=== PATIENT | male | born 1960 | race Caucasian/White ===

== ENCOUNTER → 2017-03-31 | Outpatient (CLI) | payer BC | LOC: COL.RAD 07:48 | DX: J98.4 Other disorders of lung (principal); R63.4 Abnormal weight loss; D50.0 Iron deficiency anemia secondary to blood loss (chronic) | CPT/HCPCS: Q9967 ==

== ENCOUNTER 2017-04-18 12:02 | Inpatient (IN) | payer BC ==
[2017-04-18] VITALS (7 sets, daily range): BP systolic 101–129; BP diastolic 55–70; PULSE 85–91; TEMP 98–99.9
[~2017-04-18] VITALS: Ht 180.3 cm; Wt 74.7 kg
[2017-04-18] MEDS ORDERED: MULTI VITAMINS1 TAB PO (13:42)
[2017-04-18 13:43] LABS: MEAN CELL VOLUME 70 fl (80.0-100.0); MEAN CORPUSCULAR HGB CONC 31 g/dl (33.0-37.0); MEAN PLATELET VOLUME 8.1 fl (7.4-10.4); PLATELET COUNT 556 K/mm3 (130-400); REDCELL DISTRIBUTION WIDTH-CV 14.8 % (11.5-14.5)
[2017-04-18] MEDS ORDERED: PROFERRIN ES12 MG PO (13:43)
[2017-04-18 13:45] LABS: HEMATOCRIT 22.4 % (42.0-52.0); MEAN CORPUSCULAR HEMOGLOBIN 22 pg (27.0-31.0)
[2017-04-19] VITALS (28 sets, daily range): BP systolic 84–129; BP diastolic 48–72; PULSE 57–100; TEMP 97.4–101.7
[2017-04-19 06:32] LABS: HEMATOCRIT 26.2 % (42.0-52.0); HEMOGLOBIN 8.3 g/dl (13.5-18.0)
[2017-04-19 17:57] LABS: HEMOGLOBIN 9.5 g/dl (13.5-18.0)
[2017-04-20] VITALS (7 sets, daily range): BP systolic 107–131; BP diastolic 56–65; PULSE 59–95; TEMP 97.4–101.2
[2017-04-20 00:10] LABS: COLLECTION METHOD CLEAN CATCH
[2017-04-20 00:16] LABS: MUCOUS Present /lpf; PH 7 (5-8); SQUAMOUS EPITHELIAL None Seen /hpf; URINE APPEARANCE Clear; URINE BACTERIA None Seen /hpf; URINE BILIRUBIN Negative (NEGATIVE); URINE BLOOD 2+ (NEGATIVE); URINE COLOR Yellow; URINE GLUCOSE Negative (NEGATIVE); URINE KETONE Negative (NEGATIVE); URINE LEUKOCYTE ESTERASE Trace (NEGATIVE); URINE NITRATE Negative (NEGATIVE); URINE PROTEIN(semi-quant) 1+ (NEGATIVE); URINE UROBILINOGEN Negative (NEGATIVE)
[2017-04-20 06:45] LABS: BASO # 0.1 (0.0-0.2); BASO % 0.5 % (0.0-2.0); EOS # 0.3 (0.0-0.7); EOS % 2.2 % (0-4.0); GRAN # 8.6 (1.4-6.5); GRAN % 72.9 % (42.2-75.2); LYMPH # 1.4 (1.2-3.4); LYMPH % 11.9 % (20.0-51.0); MEAN CELL VOLUME 74 fl (80.0-100.0); MEAN CORPUSCULAR HGB CONC 32 g/dl (33.0-37.0); MEAN PLATELET VOLUME 7.9 fl (7.4-10.4); MONO # 1.4 (0.1-0.6); MONO % 11.6 % (1.7-9.3); PLATELET COUNT 546 K/mm3 (130-400); RED BLOOD COUNT 3.73 M/mm3 (4.20-5.60); REDCELL DISTRIBUTION WIDTH-CV 17.3 % (11.5-14.5)
[2017-04-20 07:04] LABS: HEMATOCRIT 27.9 % (42.0-52.0); HEMOGLOBIN 8.8 g/dl (13.5-18.0)
[2017-04-20 07:06] LABS: HEMATOCRIT 27.6 % (42.0-52.0); HEMOGLOBIN 8.8 g/dl (13.5-18.0); MEAN CORPUSCULAR HEMOGLOBIN 24 pg (27.0-31.0)
[2017-04-20 07:41] LABS: ERYTHROCYTE SEDIMENTATION RATE 59 mm/hr (0-30)
[2017-04-21] VITALS (395 sets, daily range): BP systolic 105–137; BP diastolic 60–79; PULSE 81–100; TEMP 98–98.8; O2SAT 70–99
[2017-04-21 14:09] LABS: INR 1.4 (0.8-3.0); PROTHROMBIN TIME 15.7 SECONDS (9.7-12.8)
[2017-04-21 14:20] LABS: CALCIUM 7.8 mg/dL (8.4-10.2); CREATININE, serum 2.31 mg/dL (0.66-1.25); POTASSIUM 3.9 mmol/L (3.4-5.0)
[2017-04-21 23:51] LABS: RHEUMATOID FACTOR-SCREEN <15 IU/mL (0-29)
[2017-04-22] VITALS (378 sets, daily range): BP systolic 104–147; BP diastolic 64–88; PULSE 81–99; TEMP 98.1–98.5; O2SAT 91–100
[2017-04-22 05:51] LABS: BASO % 0.2 % (0.0-2.0); EOS # 0.2 (0.0-0.7); EOS % 1.9 % (0-4.0); GRAN # 9.5 (1.4-6.5); GRAN % 78.3 % (42.2-75.2); LYMPH # 0.9 (1.2-3.4); LYMPH % 7.7 % (20.0-51.0); MEAN CELL VOLUME 73 fl (80.0-100.0); MEAN CORPUSCULAR HGB CONC 32 g/dl (33.0-37.0); MEAN PLATELET VOLUME 7.8 fl (7.4-10.4); MONO # 1.3 (0.1-0.6); MONO % 10.9 % (1.7-9.3); PLATELET COUNT 458 K/mm3 (130-400); RED BLOOD COUNT 3.72 M/mm3 (4.20-5.60); REDCELL DISTRIBUTION WIDTH-CV 17.6 % (11.5-14.5)
[2017-04-22 05:58] LABS: INR 1.3 (0.8-3.0); PROTHROMBIN TIME 15.2 SECONDS (9.7-12.8)
[2017-04-22 06:00] LABS: HEMATOCRIT 27.2 % (42.0-52.0); HEMOGLOBIN 8.7 g/dl (13.5-18.0); MEAN CORPUSCULAR HEMOGLOBIN 23 pg (27.0-31.0)
[2017-04-22 06:01] LABS: PARTIAL THROMBOPLASTIN TIME 32.3 SECONDS (26.0-37.0)
[2017-04-22 06:02] LABS: ALBUMIN 2.4 gm/dL (3.5-5.0); BILIRUBIN,TOTAL 0.3 mg/dL (0.0-1.0); CALCIUM 7.9 mg/dL (8.4-10.2); CREATININE, serum 2.31 mg/dL (0.66-1.25); POTASSIUM 3.6 mmol/L (3.4-5.0); TOTAL PROTEIN 5.6 gm/dL (6.4-8.2)
[2017-04-22 14:15] LABS: COLLECTION METHOD CLEAN CATCH
[2017-04-22 14:24] LABS: PH 6 (5-8); SQUAMOUS EPITHELIAL None Seen /hpf; URINE APPEARANCE Clear; URINE BACTERIA Rare /hpf; URINE BILIRUBIN Negative (NEGATIVE); URINE BLOOD 2+ (NEGATIVE); URINE COLOR Straw; URINE GLUCOSE Negative (NEGATIVE); URINE KETONE Negative (NEGATIVE); URINE LEUKOCYTE ESTERASE Negative (NEGATIVE); URINE NITRATE Negative (NEGATIVE); URINE PROTEIN(semi-quant) Negative (NEGATIVE); URINE UROBILINOGEN Negative (NEGATIVE)
[2017-04-22 14:37] LABS: URINE PROTEIN:CREAT RATIO 1.2 (0.00-0.14)
[2017-04-23 00:13] LABS: COMPLEMENT-C3 119 mg/dL (79-152); COMPLEMENT-C4 20 mg/dL (18-55)
[2017-04-23 01:04] VITALS: BP 110/66; PULSE 96; TEMP 98.4
[2017-04-23 06:05] VITALS: BP 122/65; PULSE 98; TEMP 98.5
[2017-04-23 07:18] LABS: THYROXINE (T4)-TOTAL 7.9 ug/dL (5.5-11.0)
[2017-04-23 07:32] LABS: THYROID STIMULATING HORMONE 8.71 uIU/mL (0.465-4.680)
[2017-04-23 08:19] VITALS: BP 118/62; PULSE 96; TEMP 98.5
[2017-04-23 11:08] LABS: CREATININE, serum 2.31 mg/dL (0.66-1.25); POTASSIUM 3.4 mmol/L (3.4-5.0)
[2017-04-23 11:59] VITALS: BP 125/67; PULSE 93; TEMP 98.8
[2017-04-23 15:02] VITALS: BP 121/60; PULSE 86; TEMP 98.6
[2017-04-23 20:44] VITALS: BP 136/68; PULSE 74; TEMP 68.5
[2017-04-24] VITALS (7 sets, daily range): BP systolic 114–133; BP diastolic 50–65; PULSE 74–103; TEMP 98–99.6
[2017-04-25 04:24] VITALS: BP 149/72; PULSE 65; TEMP 98.6
[2017-04-25 08:06] VITALS: PULSE 86; TEMP 99.9
[2017-04-25 08:39] LABS: HEMATOCRIT 25.5 % (42.0-52.0)
[2017-04-25 08:53] LABS: CREATININE, serum 2.31 mg/dL (0.66-1.25); POTASSIUM 3.6 mmol/L (3.4-5.0)
[2017-04-25 11:29] VITALS: BP 110/55; PULSE 88; TEMP 99.4
[2017-04-25 15:47] VITALS: BP 116/61; PULSE 84; TEMP 99.4
[2017-04-25 19:59] VITALS: BP 130/66; PULSE 101; TEMP 98.8
[2017-04-26 00:47] VITALS: BP 122/63; PULSE 87; TEMP 98.6
[2017-04-26 05:43] VITALS: BP 101/69; PULSE 80; TEMP 98.6
[2017-04-26 08:33] VITALS: BP 123/60; PULSE 94; TEMP 99.1
[2017-04-26 11:05] VITALS: BP 110/57; PULSE 88; TEMP 99.6
[2017-04-26 16:17] VITALS: BP 118/58; PULSE 86; TEMP 99.6
[2017-04-26 18:15] LABS: IRON,SERUM 10 ug/dL (35-150)
[2017-04-26 18:24] LABS: TOTAL IRON BINDING CAPACITY 190 ug/dL (261-462)
[2017-04-26 19:41] VITALS: BP 127/57; PULSE 90; TEMP 99.5
[2017-04-26 20:49] LABS: KAPPA FREE LIGHT CHAIN-SERUM 20.5 mg/dL (()); LAMDA FREE LIGHT CHAIN SERUM 10.9 mg/dL (())
[2017-04-27] VITALS (7 sets, daily range): BP systolic 108–130; BP diastolic 53–85; PULSE 77–102; TEMP 97.9–98.9
[2017-04-27 01:52] LABS: C-ANCA 13 U/mL (0-99)
[2017-04-27 06:37] LABS: MEAN CELL VOLUME 73 fl (80.0-100.0); MEAN CORPUSCULAR HGB CONC 31 g/dl (33.0-37.0); PLATELET COUNT 342 K/mm3 (130-400); RED BLOOD COUNT 3.27 M/mm3 (4.20-5.60); REDCELL DISTRIBUTION WIDTH-CV 17.9 % (11.5-14.5); RETIC # 0.03 M/mm3 (0.02-0.16); RETIC % 0.9 % (0.5-3.52)
[2017-04-27 06:58] LABS: C-REACTIVE PROTEIN 4.7 mg/dL (0.0-0.9); CALCIUM 8.1 mg/dL (8.4-10.2); CREATININE, serum 2.26 mg/dL (0.66-1.25)
[2017-04-27 07:09] LABS: HEMOGLOBIN 7.5 g/dl (13.5-18.0); MEAN CORPUSCULAR HEMOGLOBIN 23 pg (27.0-31.0)
[2017-04-27 10:03] LABS: INR 1.3 (0.8-3.0); PROTHROMBIN TIME 15.2 SECONDS (9.7-12.8)
[2017-04-28] VITALS (19 sets, daily range): BP systolic 103–125; BP diastolic 58–86; PULSE 72–95; TEMP 97.9–99.8
[2017-04-29] VITALS (7 sets, daily range): BP systolic 103–120; BP diastolic 56–65; PULSE 78–94; TEMP 97.1–98.9
[2017-04-29 06:48] LABS: HEMATOCRIT 25.7 % (42.0-52.0); HEMOGLOBIN 8.1 g/dl (13.5-18.0)
[2017-04-29 06:54] LABS: CREATININE, serum 2.65 mg/dL (0.66-1.25)
[2017-04-30 03:30] VITALS: BP 103/58; PULSE 73; TEMP 97.6
[2017-04-30 08:09] VITALS: BP 104/54; PULSE 71; TEMP 97.5
[2017-04-30 11:31] VITALS: BP 96/50; PULSE 76; TEMP 97.8
[2017-04-30 15:07] VITALS: BP 113/60; PULSE 80; TEMP 98.8
[2017-04-30 20:15] VITALS: BP 111/63; PULSE 83; TEMP 98.5
[2017-05-01 00:17] VITALS: BP 101/57; PULSE 70; TEMP 97.9
[2017-05-01 04:26] VITALS: BP 101/57; PULSE 64; TEMP 97.5
[2017-05-01 08:50] VITALS: BP 96/52; PULSE 65; TEMP 97.6
[2017-05-01 11:54] VITALS: BP 98/52; PULSE 76; TEMP 97.5
[2017-05-01 15:47] VITALS: BP 94/47; PULSE 65; TEMP 97.8
[2017-05-01 19:22] VITALS: BP 99/52; PULSE 64; TEMP 97.6
[2017-05-02 00:27] VITALS: BP 101/52; PULSE 65; TEMP 97.6
[2017-05-02 05:12] VITALS: BP 93/59; PULSE 62; TEMP 97.7
[2017-05-02 06:56] LABS: RETIC # 0.06 M/mm3 (0.02-0.16); RETIC % 1.6 % (0.5-3.52)
[2017-05-02 06:59] LABS: CREATININE, serum 2.83 mg/dL (0.66-1.25)
[2017-05-02 07:20] LABS: HEMATOCRIT 27.1 % (42.0-52.0); HEMOGLOBIN 8.5 g/dl (13.5-18.0)
[2017-05-02 08:26] VITALS: BP 111/62; PULSE 82; TEMP 97.7
[2017-05-02 11:34] VITALS: BP 92/44; PULSE 62; TEMP 97.8
[2017-05-02 17:11] VITALS: BP 111/56; PULSE 73; TEMP 99
[2017-05-02 19:21] VITALS: BP 100/55; PULSE 77; TEMP 97.6
[2017-05-03 00:01] VITALS: BP 100/58; PULSE 62; TEMP 97.4
[2017-05-03 03:59] VITALS: BP 101/56; PULSE 73; TEMP 97.7
[2017-05-03 07:20] VITALS: BP 102/55; PULSE 75; TEMP 97.4
[2017-05-03 11:17] VITALS: BP 111/58; PULSE 62; TEMP 97
[2017-05-03] MEDS ORDERED: NATURAL IRON65 MG PO (12:02)
[2017-05-03] MEDS ORDERED: LEVOXYL0.025 MG PO (12:17)
[2017-05-03] MEDS ORDERED: PREDNISONE20 MG PO (12:20)
[2017-05-03] MEDS ORDERED: PRILOSEC 20MG20 MG PO (12:22)
[2017-05-03] MEDS ORDERED: BACTRIM DS 8001 TAB PO (12:28)
== END 2017-05-03 14:44 | disposition home or self-care (01) | DRG 812 ==
LOC: MEDICAL 12:02 → ICU 04-21 14:53 → MEDICAL 04-22 18:00
PROVIDERS: Emergency Medicine; Internal Medicine; Internal Medicine Gastroenterology; Internal Medicine Rheumatology; Nurse Practitioner
PROC: 0DJ08ZZ Inspection of Upper Intestinal Tract, Via Natural or Artificial Opening Endoscopic (ICD-10-PCS; 2017-04-19)
PROC: 0DJD8ZZ Inspection of Lower Intestinal Tract, Via Natural or Artificial Opening Endoscopic (ICD-10-PCS; 2017-04-19)
PROC: 0W9D30Z Drainage of Pericardial Cavity with Drainage Device, Percutaneous Approach (ICD-10-PCS; principal; 2017-04-22)
PROC: 0TB13ZX Excision of Left Kidney, Percutaneous Approach, Diagnostic (ICD-10-PCS; 2017-04-28)
PROC: 0HBLXZX Excision of Left Lower Leg Skin, External Approach, Diagnostic (ICD-10-PCS; 2017-04-29)
DX: D50.9 Iron deficiency anemia, unspecified (principal); I31.3 Pericardial effusion (noninflammatory); N17.9 Acute kidney failure, unspecified; E87.1 Hypo-osmolality and hyponatremia; J90 Pleural effusion, not elsewhere classified; E44.0 Moderate protein-calorie malnutrition; I77.89 Other specified disorders of arteries and arterioles; E03.9 Hypothyroidism, unspecified; Z86.711 Personal history of pulmonary embolism; R60.1 Generalized edema; Z68.21 Body mass index [BMI] 21.0-21.9, adult
CPT/HCPCS: 99222; 99232-AI; C1729; C1769; G0378; G0379; J1940; J1956; J2250; J2916; J2930; J3010; J7030; J7040; J7060; J7512; P9016

== ENCOUNTER 2017-05-06 16:00 | Outpatient (RCR) | payer BC ==
[2017-05-04 17:14] VITALS: BP 111/57; PULSE 58; TEMP 97.6
[2017-05-05 16:07] VITALS: BP 114/56; PULSE 57; TEMP 97.7
[~2017-05-06] VITALS: Ht 180.3 cm; Wt 72.0 kg
[~2017-05-06 16:00] MED LIST: BACTRIM DS 8001 TAB PO; LEVOXYL0.025 MG PO; MULTI VITAMINS1 TAB PO; NATURAL IRON65 MG PO; PREDNISONE20 MG PO; PRILOSEC 20MG20 MG PO; PROFERRIN ES12 MG PO
[2017-05-06 17:03] VITALS: BP 96/48; PULSE 63; TEMP 98.2
== END 2017-08-02 | disposition still patient (30) ==
LOC: EUO
DX: M31.7 Microscopic polyangiitis (principal); N01.9 Rapidly progressive nephritic syndrome with unspecified morphologic changes
CPT/HCPCS: J2930; J7050

== ENCOUNTER → 2017-11-14 | Outpatient (CLI) | payer BC | LOC: COL.RAD 07:25 | DX: I31.3 Pericardial effusion (noninflammatory) (principal); R91.8 Other nonspecific abnormal finding of lung field ==

== ENCOUNTER 2018-06-13 14:17 | Inpatient (IN) | payer BC ==
[~2018-06-13] VITALS: Ht 177.8 cm; Wt 79.0 kg
[2018-06-13] MEDS ORDERED: FERRO-TIME325 MG PO (14:46)
[2018-06-13] MEDS ORDERED: LEVAQUIN 750MG750 M1 PO (14:47)
[2018-06-13] MEDS ORDERED: ELIQUIS 5MG PO (14:47)
[2018-06-13] MEDS ORDERED: PREDNISONE 5MG5 MG PO (14:48)
[2018-06-13 14:58] LABS: BASO % 0.3 % (0.0-2.0); EOS # 0.1 (0.0-0.7); EOS % 0.4 % (0-4.0); GRAN # 12.7 (1.4-6.5); GRAN % 90.1 % (42.2-75.2); HEMATOCRIT 39.1 % (42.0-52.0); HEMOGLOBIN 13.2 g/dl (13.5-18.0); LYMPH # 0.3 (1.2-3.4); MEAN CELL VOLUME 86 fl (80.0-100.0); MEAN CORPUSCULAR HEMOGLOBIN 29 pg (27.0-31.0); MEAN CORPUSCULAR HGB CONC 34 g/dl (33.0-37.0); MONO # 0.9 (0.1-0.6); MONO % 6.5 % (1.7-9.3); PLATELET COUNT 202 K/mm3 (130-400); RED BLOOD COUNT 4.53 M/mm3 (4.20-5.60)
[2018-06-13 15:12] LABS: BILIRUBIN,TOTAL 0.6 mg/dL (0.0-1.0); C-REACTIVE PROTEIN 5.2 mg/dL (0.0-0.9); CALCIUM 8.9 mg/dL (8.4-10.2); CREATININE, serum 2.19 (0.66-1.25); POTASSIUM 4.1 mmol/L (3.4-5.0); TOTAL PROTEIN 6.5 gm/dL (6.4-8.2)
[2018-06-13 15:26] LABS: TROPONIN-I 0.021 ng/mL (0.000-0.035)
[2018-06-13 15:32] LABS: COLLECTION METHOD CLEAN CATCH
[2018-06-13 15:43] LABS: MUCOUS Present /lpf; PH 5 (5-8); SQUAMOUS EPITHELIAL None Seen /hpf; URINE APPEARANCE Clear; URINE BACTERIA None Seen /hpf; URINE BILIRUBIN Negative (NEGATIVE); URINE BLOOD 2+ (NEGATIVE); URINE COLOR Yellow; URINE GLUCOSE Negative (NEGATIVE); URINE KETONE Negative (NEGATIVE); URINE LEUKOCYTE ESTERASE Negative (NEGATIVE); URINE NITRATE Negative (NEGATIVE); URINE PROTEIN(semi-quant) 1+ (NEGATIVE); URINE UROBILINOGEN Negative (NEGATIVE)
[2018-06-13 16:05] LABS: ARTERIAL BLD GAS O2 SATURATION 91.2 % (92-100); ARTERIAL BLD GAS TCO2 CT 20.1; ARTERIAL BLOOD GAS BASE EXCESS -2.8 (-2-2); ARTERIAL BLOOD GAS HCO3 19.3 meq/L (22-26); ARTERIAL BLOOD GAS PCO2 26.7 mmHg (35-45); ARTERIAL BLOOD GAS pH 7.48 (7.35-7.45)
[2018-06-13 20:17] VITALS: BP 156/77; PULSE 122; TEMP 100.7
[2018-06-13 23:35] VITALS: BP 118/61; PULSE 91; TEMP 99.6
[2018-06-14] VITALS (7 sets, daily range): BP systolic 112–127; BP diastolic 50–61; PULSE 80–105; TEMP 98.8–102.5
--- NOTE | 2018-06-14 05:16 | NUR ---
Pt up from the ED last evening, Pt has been running mild fevers during the night, he has been receiving tylenol Q4H for relief of the fever, Vs have remained stable with elevated temps. Pt has had no C/O pain during the night.
--- NOTE | 2018-06-14 09:18 | NUR ---
Pt lying in bed with 2l 02 NC. Denies any shortness of breath. Breath sounds clear, completed morning assessment. Pt coughing, non productive. Denies any pain at this time. Fever still present 102.3, will administer tylenol when due. Denies any needs at this time. Will continue to monitor, call light in reach.
--- NOTE | 2018-06-14 13:14 | NUR ---
GIANCAR[employer] student met with the patient to discuss discharge planning. The patient lives in [place] by himself. The patient reports independence with ADLs and has no DME. The patients PCP is Dr. Jose New and he gets his medications at [facility]. The patient reports no difficulties obtaining his medications. The patient does not have DPOA-HC in EMR but was interested in completing one. SW provided DPOA-HC form. The patient plans to return home upon discharge. No additional needs at this time.
--- NOTE | 2018-06-14 16:15 | NUR ---
Dr. Shaver called, will be requesting to send pt to another facility.
[2018-06-14] MEDS ORDERED: IPRATROPIUM BROM3 M1 IH (17:35)
[2018-06-14] MEDS ORDERED: PREDNISONE20 MG PO (17:36)
--- NOTE | 2018-06-14 18:10 | NUR ---
[facility]
--- NOTE | 2018-06-14 18:33 | NUR ---
Pt picked up via EMS. Report given to statistical geneticist. All belongings with pt. Tele removed.
[2018-06-14 23:40] LABS: PROCALCITONIN 1.19 ng/mL (0.00-0.09)
[2018-06-16 13:49] LABS: QUANTIFERON TB GOLD Negative (Negative)
[2018-06-20 16:50] LABS: HISTOPLASMA ID Negative (Negative); HISTOPLASMA MYCELIAL Negative (Negative); HISTOPLASMA YEAST Negative (Negative)
== END 2018-06-14 18:34 | disposition short-term general hospital (02) | DRG 864 ==
LOC: COL.ER 14:17 → MEDICAL 16:57
PROVIDERS: Emergency Medicine; Internal Medicine Infectious Disease; Internal Medicine Pulmonary Disease; ADMIT Emergency Medicine
DX: R50.9 Fever, unspecified (principal); I82.4Z2 Acute embolism and thrombosis of unspecified deep veins of left distal lower extremity; R00.0 Tachycardia, unspecified; R09.02 Hypoxemia; I77.6 Arteritis, unspecified; N05.9 Unspecified nephritic syndrome with unspecified morphologic changes; Z79.890 Hormone replacement therapy; Z79.52 Long term (current) use of systemic steroids; Z57.4 Occupational exposure to toxic agents in agriculture; R59.0 Localized enlarged lymph nodes
CPT/HCPCS: A4216; J0696; J7030; J7512

== ENCOUNTER → 2019-01-24 | Outpatient (CLI) | payer BC ==
[~2019-01-24] MED LIST changes: +ELIQUIS 5MG PO; +FERRO-TIME325 MG PO; +IPRATROPIUM BROM3 M1 IH; +LEVAQUIN 750MG750 M1 PO; +PREDNISONE 5MG5 MG PO
== END ==
LOC: COL.RAD 01-18 07:50
DX: D73.4 Cyst of spleen (principal); E04.2 Nontoxic multinodular goiter

== ENCOUNTER → 2019-02-27 | Outpatient (CLI) | payer BC | LOC: COL.RAD 11:03 | DX: B39.2 Pulmonary histoplasmosis capsulati, unspecified (principal); J98.4 Other disorders of lung ==